=== PATIENT | female | born 1950 | race Caucasian/White ===

== ENCOUNTER 2019-04-21 06:07 | Outpatient (CLI) | payer MEDICARE ==
[2019-04-21 14:24] LABS: Bilirubin Negative (Negative); Blood, Urine Negative (Negative); Clarity Clear (Clear); Glucose, Urine (Dipstick) Normal (Negative); Leukocyte 500 Leu/uL (Negative); Nitrite 1+ (Negative); Protein, Urine (Dipstick) Negative (Neg-Trace); RBC/HPF 0-3 HPF (0-3); Squamous Epithelial 0-3 HPF (0-3); Urobilinogen Normal mg/dL (Less than 2)
[2019-04-21 14:26] LABS: Bacteria/HPF 1+ HPF (None Seen)
[2019-04-21 14:36] LABS: #Eosinphils 0.1 thou/uL (0.0-0.7); #Lymphocytes 2.7 thou/uL (1.20-3.40); #Monocytes 0.8 thou/uL (0.11-0.59); #Neutrophils 4.7 thou/uL (1.40-6.50); %Basophils 0.4 % (0.0-1.0); %Eosinophils 1.3 % (0.0-10.0); %Lymphocytes 32.4 % (21.0-51.0); %Monocytes 9.6 % (0.0-10.0); %Neutrophils 56.3 % (42.0-75.0); Hemoglobin 12.2 g/dL (12.0-16.0); Mean Corpuscular HGB CONC 34.4 g/dL (32.0-36.0); Mean Corpuscular Hemoglobin 33.1 pg (27.0-31.0); Mean Corpuscular Volume 96.2 fL (78.0-98.0); Mean Platelet Volume 6.4 fL (7.4-10.4); Platelet Count 314 thou/uL (130-400); RBC Distribution Width 12.5 % (11.5-14.5); Red Blood Cell (RBC) Count 3.68 mill/uL (4.20-5.40); White Blood Cell (WBC) Count 8.4 thou/uL (4.8-10.8)
[2019-04-21 14:38] LABS: Anion Gap 15 mmol/L (10-20); BUN (Urea Nitrogen) 19 mg/dL (9.8-20.1); Calc. Creatinine Clearance 0 mL/min (70-130); Calcium 10.2 mg/dL (7.8-10.44); Carbon Dioxide 18 mmol/L (23-31); Chloride 106 mmol/L (98-107); Estimated GFR-MDRD 54; Glucose 116 mg/dL (80-115); Sodium 135 mmol/L (136-145)
--- NOTE | 2019-04-23 18:48 | EKG ---
Test Reason : Blood Pressure : / mmHG Vent. Rate : 078 BPM Atrial Rate : 078 BPM P-R Int : 172 ms QRS Dur : 078 ms QT Int : 376 ms P-R-T Axes : 080 082 077 degrees QTc Int : 428 ms Normal sinus rhythm Normal ECG No previous ECGs available Confirmed by DR. Sienna HAN ([id number]) on 04/23/2019 6:48:00 PM Referred By: REBEL Confirmed By:DR. Sienna HAN
== END 2019-04-21 06:08 | disposition home or self-care (01) ==
LOC: LABBT 06:07
PROVIDERS: ATTEND Orthopaedic Surgery Hand Surgery
DX: Z01.818 Encounter for other preprocedural examination (principal); G56.21 Lesion of ulnar nerve, right upper limb
CPT/HCPCS: 80048; 81001; 85025; 93005; 93010

== ENCOUNTER 2019-04-22 06:41 | Day surgery (SDC) | payer MEDICARE ==
[2019-04-21 13:06] VITALS: BMI 21.4
[2019-04-22] MEDS ORDERED: Midazolam HCl 2 mg/2 ml Vial ONE (08:43)
[2019-04-22] MEDS ORDERED: Fentanyl 100 MCG/2 ML VIAL ONE (08:43)
[2019-04-22] MEDS ORDERED: Bupivacaine PF 0.5% 30 ML VIAL ONE (08:45)
[2019-04-22] MEDS ORDERED: Sodium Chloride 0.9% 10 ML ONE (08:45)
[2019-04-22] MEDS ORDERED: Bacitracin Zinc Ointment 30 gm TUBE ONE (08:45)
[2019-04-22] MEDS ORDERED: Betamet Acet/Betamet Na Ph 30 MG/5 ML VIAL ONE ×2 (08:45→09:43)
[2019-04-22] MEDS ORDERED: Dexamethasone 20 MG/5 ML VIAL ONE (09:21)
[2019-04-22] MEDS ORDERED: PHENYLEPHRINE-NS 100 MCG/ML 10 ML SYRINGE ONE (09:21)
[2019-04-22] MEDS ORDERED: Ondansetron PF 4 MG/2 ML Vial ONE (09:21)
[2019-04-22] MEDS ORDERED: Lidocaine 1% PF 5 ML VIAL ONE (09:21)
[2019-04-22] MEDS ORDERED: ePHEDrine/0.9% NaCl/PF SYRINGE 50 mg/10 ml ONE (09:21)
[2019-04-22] MEDS ORDERED: Ketorolac Tromethamine 30 MG/ML VIAL ONE (09:21)
[2019-04-22] MEDS ORDERED: PROPOFOL 200 MG/20 ML VIAL ONE (09:21)
--- NOTE | 2019-04-22 15:04 | OP ---
DATE OF PROCEDURE: 04/22/2019 PREOPERATIVE DIAGNOSIS: Right ulnar nerve compression with scar formation. POSTOPERATIVE DIAGNOSIS: Right ulnar nerve compression with scar formation. FINDINGS: Tremendous scarring, beginning 1.5 cm proximal to the medial epicondyle with the nerves being transposed and all coursing 1.5 cm distal to the heads of the flexor carpi, where the nerve had been transposed. Marked scar formation in this region and flattening was almost to the level of 1.5 mm in size. COMPLICATIONS: None. TOURNIQUET TIME: 113 minutes. PROCEDURES PERFORMED: 1. Ulnar nerve neuroplasty, pretty complex because of the degree of scarring, previous transposition, and the amount of compression. 2. Application of a nerve conduit ulna as nerve sleeve over 5 cm segment. INDICATIONS: The patient had previous procedure almost 2-1/2 years ago, has tremendous numbness and tingling and weakness and stage III atrophy after previous transposition ([place] stage III change). DESCRIPTION OF PROCEDURE: After successful general endotracheal anesthesia, the limb was prepped and draped. She had the limb completely draped to the level of the lateral clavicle, so the entire arm was freed, allowed for sterile tourniquet application. Sterile tourniquet was applied with sterile cast padding and a 4-inch size to a depth thickness of 5 mm. At this point, we then placed sterile tourniquet, outlined the incision using the previous old incision, extended 2.5 cm distal and proximal and exsanguinated the limb with tourniquet inflation. We then entered the scar to the point we could see the subcutaneous tissue with an 11 blade knife. We used a [place] blade knife, elevating the skin to avoid the scar in area and beginning 2.5 cm proximal to old incision. We found the ulnar nerve, beginning dissected. We had switched to DeBakey forceps to elevate the edges to perform the neuroplasty, and when we got to a point at 1.5 cm proximal to the epicondyle, the scarring became tremendous in an hourglass formation along with flattening and stippling was evident. We were able to lift this up a millimeter by millimeter, taken over 45 minutes to make it 4 inches. Once this was done, we could see where the nerves were compressed to a point where it was between the fascia and the heads of the flexor carpi radialis and flexor digitorum. It was flat to 1.5 mm height. We then released this, elevated the nerve 1 to 2 mm at that time and releasing the fascia with blunt dissection over it. We then left a space, where we could remove fascia and we did, so it would not re-form quickly. The nerve was then given, once completely freed, we transposed, a 5 mL of Celestone. We decided because of the very thinnest upper muscle after previous transposition, but the need to remain trans apposition and we protect the new nerve sheath with a nerve conduit, one 3 cm and then a break for the branch and then another 2 cm. We secured this with a single Prolene 6-0 suture. We released the tourniquet and obtained hemostasis. The joint was stable. We then closed the wound in a running 4-0 Monocryl undyed and the skin was reapproximated with benzoin and Steri-Strips. The patient had a long-arm splint applied, left the operating room with a long-arm splint at 40 degrees of flexion without evidence of anesthetic or operative complication. Please note that she had 20 mL of 0.5% Marcaine block before the surgery was initiated. Job ID: [id number]
== END 2019-04-22 13:50 | disposition home or self-care (01) ==
LOC: SDC 06:41
PROVIDERS: ATTEND Orthopaedic Surgery Hand Surgery
PROC: 01N40ZZ Release Ulnar Nerve, Open Approach (ICD-10-PCS; principal; 2019-04-22)
DX: G56.21 Lesion of ulnar nerve, right upper limb (principal); F17.200 Nicotine dependence, unspecified, uncomplicated; Z79.899 Other long term (current) drug therapy
CPT/HCPCS: C9352; J0690; J0702; J1100; J1885; J2001; J2250; J2405; J2704; J3010; J3490; S0020

== ENCOUNTER 2019-05-12 22:00 | Observation (INO) | payer MEDICARE ==
[~2019-05-12 22:00] MED LIST: Bupivacaine PF 0.5% 30 ML VIAL ONE; Dexamethasone 20 MG/5 ML VIAL ONE; Glycopyrrolate 0.2 MG/ML 5 ML SYRINGE ONE; HYDROmorphone 0.5 MG/0.5 ML SYRINGE ONE; Ketorolac Tromethamine 30 MG/ML VIAL ONE; Lidocaine 1% PF 5 ML VIAL ONE; Ondansetron PF 4 MG/2 ML Vial ONE; PHENYLEPHRINE-NS 100 MCG/ML 10 ML SYRINGE ONE; PROPOFOL 200 MG/20 ML VIAL ONE; Sodium Chloride 0.9% 30 ML ONE; ePHEDrine/0.9% NaCl/PF SYRINGE 50 mg/10 ml ONE
[2019-05-12] MEDS ORDERED: PACU-Morphine 4MG/ML VIAL SLOW IVP PRN (22:06)
[2019-05-12] MEDS ORDERED: Promethazine HCl 25 MG/ML VIAL SLOW IVP PRN (22:06)
[2019-05-12] MEDS ORDERED: HYDROmorphone 2 MG/ML VIAL SLOW IVP PRN (22:06)
[2019-05-12] MEDS ORDERED: Ondansetron HCl/PF 4 MG/2 ML Vial IVP PRN (22:06)
[2019-05-12] MEDS ORDERED: Promethazine HCl 25 MG/ML VIAL IM PRN (22:06)
[2019-05-12] MEDS ORDERED: Acetaminophen 325 MG TAB PO PRN (22:48)
[2019-05-12] MEDS ORDERED: Bisacodyl 10 MG SUPP PR PRN (22:48)
[2019-05-12] MEDS ORDERED: Ondansetron PF 4 MG/2 ML Vial IV PRN (22:48)
[2019-05-12] MEDS ORDERED: traMADol HCl 50 MG TAB PO PRN (22:48)
[2019-05-12] MEDS ORDERED: Morphine 2 MG/ML SYRINGE SLOW IVP PRN (22:48)
[2019-05-12] MEDS ORDERED: Fentanyl 100 MCG/2 ML VIAL SLOW IVP PRN (22:48)
[2019-05-12] MEDS ORDERED: Milk Of Magnesia 30 ML UDCUP PO PRN (22:48)
[2019-05-12] MEDS ORDERED: Meperidine HCl/PF 25 MG/ML VIAL IM PRN (22:55)
[2019-05-12] MEDS ORDERED: TETANUS AND DIPHTHERIA TOX/PF 0.5 ML DISP.SYRIN IM SCH (23:00)
[2019-05-12] MEDS ORDERED: Communication Order-Pharmacy FS SCH (23:00)
[2019-05-13] MEDS: HYDROcodone/Acetaminophen 5/325 mg Tablet PO PRN ×3 (00:12→14:36)
[2019-05-13 00:26] LABS: Hemoglobin 9.9 g/dL (12.0-16.0); Mean Corpuscular Hemoglobin 33.4 pg (27.0-31.0); Mean Corpuscular Volume 98.1 fL (78.0-98.0); Mean Platelet Volume 6.1 fL (7.4-10.4); Platelet Count 367 thou/uL (130-400); RBC Distribution Width 12.8 % (11.5-14.5); Red Blood Cell (RBC) Count 2.97 mill/uL (4.20-5.40)
[2019-05-13 00:41] LABS: Band 1 % (5-11); Hypochromia SLIGHT = 6-15 cells (100X) (0-5/hpf); Lymphocytes 10 % (21-51); MDiff Complete? YES; Neutrophil 89 % (42-75); Platelet Morphology Comment Appears Adequate
[2019-05-13 01:04] VITALS: BMI 24.3
--- NOTE | 2019-05-13 03:10 | OP ---
DATE OF PROCEDURE: 05/12/2019 PREOPERATIVE DIAGNOSIS: A 7 cm wound with partial exposure of previous ulnar nerve cubital tunnel subcutaneous release. POSTOPERATIVE FINDINGS: No gross infection to include the nerve sleeve placed around nerves to protect it with marked hypertrophic flesh subcutaneous consistent with irritation and open wound. PROCEDURES PERFORMED: Debridement of wound down to and but not including the joint and bone with following techniques: 1. Excision. 2. Instrumentation would be tenotomy scissors, [place] blade, Adson's, and irrigation with 3 L normal saline and a curette. 3. Application of a wound VAC dressing, successful intraop for a total of 7 cm x 2 cm. DESCRIPTION OF PROCEDURE: After successful general endotracheal anesthesia, the limb was prepped and draped. Patient had the limb inspected, and then we immediately saw the hypertrophic subcutaneous tissue from irritation without gross infection in any quadrant of the wound. We closed the outer quadrants with 4-0 nylon and then irrigated the remaining portion of the wound with 3 L of normal saline and Pulsavac pressure. The patient then had the hemostasis obtained, we placed a white sponge over the epicondyle region and possible trochlea versus capitulum bony lesion and then began to prepare for definitive wound care. We noticed there was evidence and so we finished the irrigation we opened the original wound intact and left the operating room without evidence of anesthetic or operative complication. Job ID: [id number]
[2019-05-13 05:42] LABS: #Monocytes 0.1 thou/uL (0.11-0.59); #Neutrophils 3.3 thou/uL (1.40-6.50); %Eosinophils 0.1 % (0.0-10.0); %Lymphocytes 22.1 % (21.0-51.0); %Monocytes 3.1 % (0.0-10.0); %Neutrophils 74.6 % (42.0-75.0); Hemoglobin 8.5 g/dL (12.0-16.0); Mean Corpuscular HGB CONC 33.8 g/dL (32.0-36.0); Mean Corpuscular Hemoglobin 33.4 pg (27.0-31.0); Mean Corpuscular Volume 98.7 fL (78.0-98.0); Mean Platelet Volume 6.2 fL (7.4-10.4); Platelet Count 359 thou/uL (130-400); RBC Distribution Width 13.1 % (11.5-14.5); Red Blood Cell (RBC) Count 2.55 mill/uL (4.20-5.40); White Blood Cell (WBC) Count 4.4 thou/uL (4.8-10.8)
[2019-05-13] MEDS ORDERED: Vancomycin HCl 1 GM in Premix Bag 1 BAG IVPB SCH (06:00)
[2019-05-13] MEDS: Aspirin 81 mg Enteric Coated Tablet PO SCH ×2 (08:42→20:28)
[2019-05-13] MEDS ORDERED: Ibuprofen 800 MG TAB PO PRN (12:46)
[2019-05-13] MEDS: Gabapentin 400 MG CAP PO SCH ×2 (14:28→20:28)
[2019-05-13] MEDS: Carvedilol 3.125 MG TAB PO SCH (20:29)
[2019-05-13] MEDS: Oxybutynin 5 MG TAB PO SCH (20:29)
[2019-05-14] MEDS ORDERED: HYDROcodone/Acetaminophen 5/325 mg Tablet ONE (03:27)
[2019-05-14] MEDS ORDERED: Ketorolac Tromethamine 30 MG/ML VIAL ONE (04:59)
[2019-05-14] MEDS ORDERED: Levothyroxine 175 MCG TAB ONE (05:26)
[2019-05-14] MEDS ORDERED: Levothyroxine 150 MCG TAB ONE (05:55)
[2019-05-14] MEDS ORDERED: Levothyroxine 150 MCG TAB PO SCH (06:00)
[2019-05-14] MEDS ORDERED: traMADol HCl 50 MG TAB ONE (06:15)
[2019-05-14] MEDS ORDERED: tiZANidine HCl 4 MG TAB ONE (06:15)
[2019-05-14] MEDS ORDERED: Vit A,C & E/Lutein/Minerals Tablet PO SCH (09:00)
[2019-05-14] MEDS ORDERED: Hydrochlorothiazide 25 MG TAB PO SCH (09:00)
[2019-05-14] MEDS: Aspirin 81 mg Enteric Coated Tablet PO SCH (13:01)
[2019-05-14] MEDS: Gabapentin 400 MG CAP PO SCH ×2 (13:01→14:37)
[2019-05-14] MEDS: Carvedilol 3.125 MG TAB PO SCH (13:01)
[2019-05-14] MEDS: Oxybutynin 5 MG TAB PO SCH (13:02)
[2019-05-14] MEDS: HYDROcodone/Acetaminophen 5/325 mg Tablet PO PRN (14:38)
[2019-05-14 16:14] VITALS: BP 112/75; TEMP 98
== END 2019-05-14 17:50 | disposition home health service (06) ==
LOC: SDC 22:00 → SURG B 23:55
PROVIDERS: ADMIT Orthopaedic Surgery Hand Surgery; ATTEND Orthopaedic Surgery Hand Surgery
PROC: 0JBH0ZZ Excision of Left Lower Arm Subcutaneous Tissue and Fascia, Open Approach (ICD-10-PCS; principal; 2019-05-12)
DX: S51.002A Unspecified open wound of left elbow, initial encounter (principal)
CPT/HCPCS: 11042; 85025 ×2; 87070; 87075; 87077; 87205; 96365; 96366; 97139 ×4; G0378 ×2; 36415; 36416; 87186; J1100; J1170; J1885; J2001; J2405; J2704; J3370; J3490; S0020

== ENCOUNTER 2019-05-26 15:38 | Day surgery (SDC) | payer MEDICARE ==
[2019-05-23 14:48] VITALS: BMI 20.7
[~2019-05-26 15:38] MED LIST changes: -Bupivacaine PF 0.5% 30 ML VIAL ONE; +Calcium Chloride 1 GM/10 ML Abboject SYRINGE ONE; -Glycopyrrolate 0.2 MG/ML 5 ML SYRINGE ONE; -HYDROmorphone 0.5 MG/0.5 ML SYRINGE ONE; -Ketorolac Tromethamine 30 MG/ML VIAL ONE; -Sodium Chloride 0.9% 30 ML ONE
[2019-05-26] MEDS ORDERED: Fentanyl 100 MCG/2 ML VIAL ONE (17:28)
[2019-05-26] MEDS ORDERED: Sodium Chloride 0.9% 30 ML ONE (17:33)
[2019-05-26] MEDS ORDERED: Bacitracin Zinc Ointment 30 gm TUBE ONE (17:33)
[2019-05-26] MEDS ORDERED: Betamet Acet/Betamet Na Ph 30 MG/5 ML VIAL ONE (17:33)
[2019-05-26] MEDS ORDERED: Bupivacaine PF 0.5% 30 ML VIAL ONE (17:33)
--- NOTE | 2019-05-27 02:31 | OP ---
DATE OF PROCEDURE: 05/26/2019 PREOPERATIVE DIAGNOSES: 1. Right elbow 8 cm wound, open. 2. Right small finger metacarpophalangeal joint extensor subluxation of ulna. POSTOPERATIVE DIAGNOSES: 1. Right elbow 8 cm wound, open. 2. Right small finger metacarpophalangeal joint extensor subluxation of ulna. 3. Extensor tendon subluxed approximately 50% ulnarly through range of motion with a tight ulnar retinaculum. 4. No gross infection, right elbow wound with minimal granulation tissue away from the ulnar nerve. TOTAL TOURNIQUET TIME: 8 minutes. ESTIMATED BLOOD LOSS: 20 mL. DESCRIPTION OF PROCEDURE: After successful general endotracheal anesthesia, the limb was prepped and draped. The entire arm was prepped and draped with axilla and shoulder available for draping. Once we did this, we did not use a tourniquet. Initially, we removed the four sutures from the previous procedure, re-opened this portion and inspected the wound. There was moderate amount of granulation tissue almost 5 mm thick by 2 cm long posterior to the medial epicondyle. We knew the nerve had been subcutaneously moved anteriorly, so we visualized the nerve, then removed the granulation tissue. This caused some bleeding and we obtained hemostasis. We then irrigated the area after debriding the wound edges 1 mm circumferential for closure with 3 L of normal saline and Pulsavac pressure with antibiotics inside. We obtained hemostasis, placed a small drain in temporarily and closed the wound over the drain with interrupted 3-0 nylon in simple pattern. We then placed a sterile tourniquet on the proximal forearm and addressed the hand. We exsanguinated the limb, inflated the tourniquet to 250 mmHg pressure. We made a zigzag incision over the MP joint and saw that the extensor mechanism had a sharp angle ulnarly and it was subluxed approximately 50% ulnarly through range of motion somewhere between 40 and 60 degrees subluxation began. We released the ulnar retinaculum. We then did a [id number] tightening in extension of the radial side and at this point, it remained balanced with no popping, no locking. We then deflated the tourniquet. The retinaculum had been closed with [id number] fashion with 4-0 Prolene on RB-1 needle. We also released tendon on the radial side. The patient had hemostasis obtained, we closed the metacarpophalangeal joint small finger right incision with interrupted 4-0 nylon in simple pattern. Bulky dressing was applied. All wounds received a total of 20 mL and 0.5% Marcaine subcutaneous and the small finger metacarpophalangeal joint wound received 10 mL for block effect for a total of 30. A long-arm splint was applied. This allowed the MP of the ring finger and the small finger to be in about -10 degree full extension and to protect the elbow at 90 degrees. She left the operating room without evidence of anesthetic or operative complication. Job ID: [id number]
== END 2019-05-26 20:40 | disposition home or self-care (01) ==
LOC: SDC 15:38
PROVIDERS: ATTEND Orthopaedic Surgery Hand Surgery
PROC: 0LS70ZZ Reposition Right Hand Tendon, Open Approach (ICD-10-PCS; principal; 2019-05-26)
DX: S51.001A Unspecified open wound of right elbow, initial encounter (principal); S63.071A Subluxation of distal end of right ulna, initial encounter; F32.9 Major depressive disorder, single episode, unspecified; F17.210 Nicotine dependence, cigarettes, uncomplicated; Z79.899 Other long term (current) drug therapy
CPT/HCPCS: J0690; J0702; J1100; J2001; J2405; J2704; J3010; J3490; S0020

== ENCOUNTER 2019-06-20 11:05 | Observation (INO) | payer MEDICARE ==
[2019-06-19 11:56] VITALS: BMI 22.3
[2019-06-20 12:26] LABS: #Eosinphils 0.1 thou/uL (0.0-0.7); #Monocytes 0.5 thou/uL (0.11-0.59); #Neutrophils 4.9 thou/uL (1.40-6.50); %Basophils 0.2 % (0.0-1.0); %Eosinophils 1.4 % (0.0-10.0); %Lymphocytes 26.8 % (21.0-51.0); %Monocytes 6.4 % (0.0-10.0); %Neutrophils 65.3 % (42.0-75.0); Hemoglobin 9.8 g/dL (12.0-16.0); Mean Corpuscular HGB CONC 34.6 g/dL (32.0-36.0); Mean Corpuscular Hemoglobin 34.3 pg (27.0-31.0); Mean Corpuscular Volume 99.3 fL (78.0-98.0); Mean Platelet Volume 6.1 fL (7.4-10.4); Platelet Count 327 thou/uL (130-400); RBC Distribution Width 12.1 % (11.5-14.5); Red Blood Cell (RBC) Count 2.86 mill/uL (4.20-5.40); White Blood Cell (WBC) Count 7.5 thou/uL (4.8-10.8)
[2019-06-20 12:42] LABS: Calcium 8.6 mg/dL (7.8-10.44); Chloride 114 mmol/L (98-107); Glucose 101 mg/dL (80-115); Potassium 3.4 mmol/L (3.5-5.1); Sodium 141 mmol/L (136-145)
[2019-06-20 12:44] LABS: Anion Gap 14 mmol/L (10-20); Carbon Dioxide 16 mmol/L (23-31)
[2019-06-20 12:46] LABS: Calc. Creatinine Clearance 64 mL/min (70-130); Estimated GFR-MDRD 72
[2019-06-20 12:47] LABS: BUN (Urea Nitrogen) 16 mg/dL (9.8-20.1)
[2019-06-20] MEDS ORDERED: ePHEDrine/0.9% NaCl/PF SYRINGE 50 mg/10 ml ONE (13:48)
[2019-06-20] MEDS ORDERED: Ondansetron PF 4 MG/2 ML Vial ONE (13:48)
[2019-06-20] MEDS ORDERED: PROPOFOL 200 MG/20 ML VIAL ONE (13:48)
[2019-06-20] MEDS ORDERED: Dexamethasone 10 MG/ML VIAL ONE (13:48)
[2019-06-20] MEDS ORDERED: Lidocaine 1% PF 5 ML VIAL ONE (13:48)
[2019-06-20] MEDS ORDERED: Ketorolac Tromethamine 30 MG/ML VIAL ONE (13:48)
[2019-06-20] MEDS ORDERED: Thrombin 5000 UNITS/5 ML VIAL ONE (14:51)
[2019-06-20] MEDS ORDERED: Bupivacaine 0.25% HCL 30 ML VIAL ONE (14:51)
[2019-06-20] MEDS ORDERED: Bacitracin Zinc Ointment 30 gm TUBE ONE (14:51)
[2019-06-20] MEDS ORDERED: HYDROmorphone 0.5 MG/0.5 ML SYRINGE ONE (14:54)
[2019-06-20] MEDS ORDERED: Morphine 4 MG/ML VIAL SLOW IVP PRN (15:36)
[2019-06-20] MEDS ORDERED: Promethazine HCl 25 MG/ML VIAL IM PRN ×2 (15:36→16:45)
[2019-06-20] MEDS ORDERED: Acetaminophen/Codeine 30-300mg Tablet PO PRN (15:36)
[2019-06-20] MEDS ORDERED: traMADol HCl 50 MG TAB PO PRN (15:36)
[2019-06-20] MEDS ORDERED: Ondansetron PF 4 MG/2 ML Vial IV PRN (15:36)
[2019-06-20] MEDS ORDERED: Acetaminophen 325 MG TAB PO PRN (15:36)
[2019-06-20] MEDS ORDERED: Fentanyl 100 MCG/2 ML VIAL SLOW IVP PRN (15:36)
[2019-06-20] MEDS ORDERED: Meperidine HCl/PF 25 MG/ML VIAL IM PRN (15:40)
[2019-06-20] MEDS ORDERED: TETANUS AND DIPHTHERIA TOX/PF 0.5 ML DISP.SYRIN IM SCH (15:45)
[2019-06-20] MEDS ORDERED: Communication Order-Pharmacy FS SCH (15:45)
[2019-06-20] MEDS ORDERED: Bupivacaine PF 0.5% 30 ML VIAL ONE (15:54)
[2019-06-20] MEDS ORDERED: PACU-Morphine 4MG/ML VIAL SLOW IVP PRN (16:45)
[2019-06-20] MEDS ORDERED: Ondansetron HCl/PF 4 MG/2 ML Vial IVP PRN (16:45)
[2019-06-20] MEDS ORDERED: HYDROmorphone 2 MG/ML VIAL SLOW IVP PRN (16:45)
[2019-06-20] MEDS ORDERED: Promethazine HCl 25 MG/ML VIAL SLOW IVP PRN (16:45)
[2019-06-20] MEDS: Gabapentin 400 MG CAP PO SCH (21:54)
[2019-06-20] MEDS: Aspirin 81 mg Enteric Coated Tablet PO SCH (21:54)
[2019-06-20] MEDS: Cephalexin 250 MG CAP PO SCH (21:55)
[2019-06-20] MEDS: Ibuprofen 800 MG TAB PO SCH (21:55)
[2019-06-20] MEDS: Vancomycin HCl 1 GM in Premix Bag 1 BAG IVPB SCH (21:55)
[2019-06-20] MEDS: Sodium Chloride 0.9% 100 ML IV SCH ×3 (21:58→23:13)
[2019-06-21] MEDS: Sodium Chloride 0.9% 1,000 ML IV SCH ×2 (01:43→12:28)
[2019-06-21] MEDS: Carvedilol 3.125 MG TAB PO SCH ×2 (05:32→10:04)
[2019-06-21] MEDS ORDERED: Levothyroxine 150 MCG TAB PO SCH (06:00)
[2019-06-21 08:16] VITALS: TEMP 98
[2019-06-21] MEDS ORDERED: Ferrous Sulfate 325 MG TAB PO SCH (09:00)
[2019-06-21] MEDS ORDERED: Multivitamin W/ Minerals 1 TAB PO SCH (09:00)
[2019-06-21] MEDS ORDERED: Lisinopril 20 MG TAB PO SCH (09:00)
[2019-06-21] MEDS ORDERED: Hydrochlorothiazide 25 MG TAB PO SCH (09:00)
[2019-06-21] MEDS: Vancomycin HCl 1 GM in Premix Bag 1 BAG IVPB SCH (10:02)
[2019-06-21] MEDS: Gabapentin 400 MG CAP PO SCH (10:03)
[2019-06-21] MEDS: Cephalexin 250 MG CAP PO SCH ×2 (10:03→14:02)
[2019-06-21] MEDS: Aspirin 81 mg Enteric Coated Tablet PO SCH (10:03)
[2019-06-21] MEDS: Ibuprofen 800 MG TAB PO SCH (10:04)
[2019-06-21 12:20] VITALS: BP 110/65
[2019-06-21] MEDS ORDERED: Prevnar 13-Val Conj/PF 0.5 ML SYRINGE IM ONE (21:00)
--- NOTE | 2019-06-23 12:08 | OP ---
DATE OF PROCEDURE: 06/20/2019 PREOPERATIVE DIAGNOSIS: Right medial elbow open wound, nonhealing, 5 x 2 cm. POSTOPERATIVE DIAGNOSIS: A 5 x 2.5 cm wound once debrided. PROCEDURES PERFORMED: 1. Debridement of wound, intermediate depth [id number]. 2. A 5 x 2.5 split-thickness skin graft, harvested from the ipsilateral thigh to the right medial elbow. TOURNIQUET TIME: None. ESTIMATED BLOOD LOSS: 10 mL. FINDINGS: No infection seen. INDICATIONS: The patient returned to the operating room after stage wound management of what was previously a dehisced incision postoperative and then it was closed. She then 2-1/2 weeks later after that lost continuity of the central portion of wound or 5 cm length of the wound, so we decided at this point the most appropriate treatment might be a skin graft after debridement since she had no infection and had been treated on a VAC dressing since then. DESCRIPTION OF PROCEDURE: After successful general endotracheal anesthesia, limb was prepped and draped. Tourniquet was placed on sterilely high in the arm. We then dissected the skin incision that was part of the wound dehiscence and separation 360 degrees and found no infection, no drainage, no hematoma. The ulnar nerve was in the superior upper outer quadrant of this incision. Once we undermined the skin, irrigated with 1000 mL normal saline, we had finished the debridement, which involved excisional technique using tenotomy scissors, [place] blade, and small hemostats. We also used a curette on the subcutaneous granulation tissue, which was well away from the ulnar nerve and ulnar nerve was protected. We then were able to close the distal 1 cm of the wound, and then, once we visualized no underlying soft tissue contraindication, harvested a 0.020 cm thick split-thickness skin graft from the ipsilateral mid lateral thigh, placed this donor site with thrombin-soaked Gel-Foam and then applied it with you to the wound. There was no crater defect seen. The patient then had a bulky dressing applied along with a sling because she . Job ID: [id number]
== END 2019-06-21 16:30 | disposition home or self-care (01) ==
LOC: SDC 11:05 → SURG A 17:34
PROVIDERS: ADMIT Orthopaedic Surgery Hand Surgery; ATTEND Orthopaedic Surgery Hand Surgery
PROC: 0HRDX74 Replacement of Right Lower Arm Skin with Autologous Tissue Substitute, Partial Thickness, External Approach (ICD-10-PCS; principal; 2019-06-20)
PROC: 0JBG0ZZ Excision of Right Lower Arm Subcutaneous Tissue and Fascia, Open Approach (ICD-10-PCS; 2019-06-20)
DX: T81.31XA Disruption of external operation (surgical) wound, not elsewhere classified, initial encounter (principal); F17.200 Nicotine dependence, unspecified, uncomplicated; E07.9 Disorder of thyroid, unspecified; F32.9 Major depressive disorder, single episode, unspecified; M19.90 Unspecified osteoarthritis, unspecified site; Z79.899 Other long term (current) drug therapy; Z98.1 Arthrodesis status; Z98.890 Other specified postprocedural states
CPT/HCPCS: 15002; 15100; 80048; 85025; 96361 ×2; 96365; 96366; 96376; G0378 ×2; 36415; J0690; J1100; J1170; J1885; J2001; J2405; J2704; J3370; J3490; S0020

== ENCOUNTER 2020-05-04 11:13 | Emergency (ER) | payer MEDICARE ==
--- NOTE | 2020-05-04 12:11 | RAD ---
EXAM: Single view of the chest HISTORY: Syncope COMPARISON: 11/10/2009 FINDINGS: Single view of the chest shows a normal sized cardiomediastinal silhouette. There is no gil dence of consolidation, mass, or pleural effusion. Degenerative changes are seen in the spine. A spinal stimulation device is seen in the mid thoracic spine. IMPRESSION: No evidence of acute cardiopulmonary disease
[2020-05-04 12:18] LABS: #Basophils 0.1 thou/uL (0.0-0.2); #Eosinphils 0.1 thou/uL (0.0-0.7); #Monocytes 0.5 thou/uL (0.11-0.59); %Basophils 1.1 % (0.0-1.0); %Eosinophils 1.2 % (0.0-10.0); %Lymphocytes 30.3 % (21.0-51.0); %Monocytes 7.7 % (0.0-10.0); %Neutrophils 59.7 % (42.0-75.0); Mean Corpuscular HGB CONC 33.8 g/dL (32.0-36.0); Mean Corpuscular Hemoglobin 32.2 pg (27.0-31.0); Mean Corpuscular Volume 95.2 fL (78.0-98.0); Mean Platelet Volume 6.8 fL (7.4-10.4); Platelet Count 280 thou/uL (130-400); RBC Distribution Width 12.6 % (11.5-14.5); Red Blood Cell (RBC) Count 3.43 mill/uL (4.20-5.40); White Blood Cell (WBC) Count 6.6 thou/uL (4.8-10.8)
--- NOTE | 2020-05-04 12:29 | CT ---
CT BRAIN NONCONTRAST: DATE: 05/04/2020 HISTORY: 69-year-old female status post syncope FINDINGS: There is no evidence of acute intra-axial or extra-axial hemorrhage. There is no midline shift or any other mass effect. There is no extra-axial fluid collection. There is no evidence of obstructive hydrocephalus. Calvarium is intact. There are low attenuation areas in the white matter. These are no nspecific, but in a patient of this age, they are probably chronic ischemic white matter changes due to microvascular atherosclerosis. There is an approximately 1 x 0.7 cm sclerotic, expansile osseo us lesion at right anterior ethmoid region. Otherwise, the rest of the ethmoid, sphenoid, and frontal sinuses, and the bilateral tympanomastoid cavities, are grossly clear. IMPRESSION: 1) No acute intracranial findings. 2) chronic ischemic white matter changes. 3) sclerotic, expansile osseous lesion at right anterior ethmoids: Fibro-osseous lesion versus osteom a. Metastatic lesion somewhat unlikely, unless the patient has a known primary malignancy somewhere.
[2020-05-04 12:55] LABS: ALT (SGPT) Less than 7 U/L (8-55); AST (SGOT) 13 U/L (5-34); Albumin 4.1 g/dL (3.4-4.8); Alkaline Phosphatase 83 U/L (40-110); Anion Gap 20 mmol/L (10-20); BUN (Urea Nitrogen) 29 mg/dL (9.8-20.1); Bilirubin, Total Less than 0.2 mg/dL (0.2-1.2); Calc. Creatinine Clearance 0 mL/min (70-130); Carbon Dioxide 12 mmol/L (23-31); Chloride 110 mmol/L (98-107); Estimated GFR-MDRD 34; Globulin 2.7 g/dL (2.4-3.5); Glucose 124 mg/dL (80-115); Potassium 3.4 mmol/L (3.5-5.1); Protein, Total 6.8 g/dL (6.0-8.3); Sodium 139 mmol/L (136-145)
[2020-05-04] MEDS ORDERED: Boostrix 0.5 ML (Tdap) VIAL ONE (13:15)
[2020-05-04] MEDS ORDERED: Potassium Chloride 20 MEQ TAB ONE (14:29)
== END 2020-05-04 15:02 | disposition home or self-care (01) ==
LOC: ERS 11:13
DX: R55 Syncope and collapse (principal); N17.9 Acute kidney failure, unspecified; M89.9 Disorder of bone, unspecified; E87.6 Hypokalemia; I10 Essential (primary) hypertension; F32.9 Major depressive disorder, single episode, unspecified; F17.210 Nicotine dependence, cigarettes, uncomplicated; Z79.899 Other long term (current) drug therapy
CPT/HCPCS: 70450; 71045; 80053; 84484; 85025; 90471; 90715; 93005

== ENCOUNTER 2020-06-24 10:14 | Outpatient (CLI) | payer MEDICARE ==
--- NOTE | 2020-06-24 14:23 | MRI ---
MRI OF RIGHT HAND PERFORMED WITHOUT CONTRAST ENHANCEMENT: 06/24/20 HISTORY: Patient had some type of previous nerve release surgery in April 2019. The exact site is unspecifi ed. Unable to flex little finger even after therapy. There is normal signal change within the carpal, metacarpals and phalanges. No evidence of any fractu res. This examination was not dedicated to specifically evaluating the wrist. Scapholunate and lunatotriqu etral ligaments grossly appear unremarkable. Extensor tendons are normal in appearance. At the level of the carpal tunnel, I never definitively identify a flexor digitorum superficialis ten don of the little finger. Flexor digitorum profundus is identified. Following the flexor digitorum pr ofundus distally is difficult as there is motion artifact on some of these images related to the arden le finger. I cannot see a definite distal attachment of the flexor digitorum profundus tendon on the distal phalanx. I am not certain how much of this is just related to the technique of the exam. No other significant findings. IMPRESSION: 1. I can never definitively identify the flexor digitorum superficialis tendon of the little fin cherelle at the carpal tunnel level. May be just small or used with the flexor digitorum profundus making it difficult to visualize. If there is any reason to suspect any type of proximal tear in the forearm , then additional films of this area would be suggested, although I think this is probably unlikely. 2. Motion artifact of the little finger degrades detail but I cannot definitely demonstrate the distal attachment of the flexor digitorum profundus tendon at the distal phalanx level and this could indicate that there was a tear distally. Clinical correlation as to whether this fits the clinical f indings. If indicated, dedicated MR using the three [place] magnet of the little finger would be helpf ul in better assessment. POS: [facility]
== END 2020-06-24 10:15 | disposition home or self-care (01) ==
LOC: MRI 10:14
PROVIDERS: ATTEND Orthopaedic Surgery Hand Surgery
DX: S66.811D Strain of other specified muscles, fascia and tendons at wrist and hand level, right hand, subsequent encounter (principal)